=== PATIENT | male | born 1970 | race Caucasian/White ===

== ENCOUNTER 2017-12-10 15:57 | Emergency (ER) | payer OTHER ==
[~2017-12-10] VITALS: Ht 180.3 cm; Wt 104.3 kg
[~2017-12-10 15:57] MED LIST: ASPIR 8181 MG PO; CLONAZEPAM 1 MG1 M1 PO; HYDROCODON-ACE1 EAC7 PO; LISINOPRIL5 MG PO; LOVASTATIN 20 M20 MG PO; NOHOMEMEDICATIONS; ZOLOFT50 MG
[2017-12-10 17:02] LABS: ABSOLUTE BASOPHILS 0.1 thou/uL (0.0-0.2); ABSOLUTE EOSINOPHILS 0.3 thou/uL (0.0-0.7); ABSOLUTE MONOCYTES 0.3 thou/uL (0.0-1.2); ABSOLUTE NEUTROPHILS 3.7 thou/uL (1.6-8.1); BASOPHILS 1.4 %; EOSINOPHILS 4.9 %; HEMATOCRIT 47.5 % (42.0-52.0); HEMOGLOBIN 16.4 gm/dL (14.0-18.0); LYMPHOCYTES 31.5 %; MCH 30.1 pg (26.0-34.0); MCHC 34.5 g/dL (28.0-37.0); MCV 87.3 fL (80.0-100.0); MONOCYTES 4.7 %; MPV 8.3 fl. (7.2-11.1); NUCLEATED RBCS 0 /100WBC; PLATELET COUNT* 157 thou/uL (150-400); POLYS 57.5 %; RBC 5.44 mil/uL (4.50-6.00); RDW-CV 13.2 % (10.5-14.5); WBC 6.5 thou/uL (4.0-11.0)
[2017-12-10] MEDS ORDERED: PREDNISONE 20 M20 M1 PO (17:10)
[2017-12-10] MEDS ORDERED: DOXYCYCLINE 10100 M1 PO (17:10)
[2017-12-10] MEDS ORDERED: PROAIR HFA8.5 GM INH (17:10)
[2017-12-10 17:11] LABS: ANION GAP 3 mmol/L (7-16); BUN 18 mg/dL (7-18); CALCIUM 8.9 mg/dL (8.5-10.1); CHLORIDE 100 mmol/L (98-107); CO2 31 mmol/L (21-32); CREATININE 0.9 mg/dL (0.6-1.3); GLUCOSE 101 mg/dL (70-99); POTASSIUM 4.4 mmol/L (3.5-5.1); SODIUM 134 mmol/L (136-145)
[2017-12-10 17:22] LABS: ALBUMIN 3.7 g/dL (3.4-5.0); ALKALINE PHOSPHATASE 105 U/L (46-116); NT-PRO BRAIN NAT PEPTIDE 19 pg/mL (<300); SGOT 23 U/L (15-37); SGPT 35 U/L (30-65); TOTAL BILIRUBIN 0.6 mg/dL (<0.1-1.0); TOTAL PROTEIN 7.8 g/dL (6.4-8.2); TROPONIN-I LEVEL <0.06 ng/mL (<0.06)
[2017-12-10 18:14] LABS: INFLUENZA A ANTIGEN None Detected (None Detect); INFLUENZA B ANTIGEN None Detected (None Detect)
[2017-12-10 18:34] VITALS: BP 121/75
--- NOTE | 2017-12-11 15:51 | EKG ---
[place] [address] ELECTROCARDIOGRAM REPORT Name: AJAY VELA Room: [facility]#: [id number] Admission: 12/10/17 Attend Phys: Discharge: 12/10/17 Date of : 74 Report #: [id number] THIS REPORT FOR: //name// [facility] ED Test Date: 2017-12-10 Test Time: 16:17:13 Pat Name: AJAY BRUNERCK Department: Room: Gender: M Distribution Manager: EDELMIRA : 1970 Requested By: Mercy Charles Order Number: [id number] MD: Ajay Mensah Measurements Intervals [place] Rate: 83 P: 73 ID: 161 QRS: 45 QRSD: 101 T: 61 QT: 371 QTc: 436 Interpretive Statements Sinus rhythm RSR' in V1 or V2, right IVCD ST elev, probable normal early repol pattern Compared to ECG 05/12/2015 10:53:01 Heart rate has increased Electronically Signed On 12-11-2017 15:51:44 PIPING DRAFTER by Ajay Mensah [email or web address] <ELECTRONICALLY SIGNED> By: Ajay Mensah MD, [facility] 12/11/17 1551 1617 1617 Ajay Mensah MD, [facility] /EPI
== END 2017-12-10 18:36 | disposition home or self-care (01) ==
LOC: M.ERS 15:57
PROVIDERS: Nurse Practitioner Family
DX: J20.9 Acute bronchitis, unspecified (principal); J18.1 Lobar pneumonia, unspecified organism; F17.210 Nicotine dependence, cigarettes, uncomplicated; I10 Essential (primary) hypertension; E78.5 Hyperlipidemia, unspecified; E11.9 Type 2 diabetes mellitus without complications; F41.9 Anxiety disorder, unspecified

== ENCOUNTER → 2017-12-18 | Outpatient (CLI) | payer OTHER ==
[~2017-12-18] MED LIST changes: +DOXYCYCLINE 10100 M1 PO; +PREDNISONE 20 M20 M1 PO; +PROAIR HFA8.5 GM INH; +ZPAK PO
== END ==
LOC: M.RAD 16:32
DX: J18.9 Pneumonia, unspecified organism (principal)

== ENCOUNTER → 2018-01-18 | Outpatient (CLI) | payer OTHER ==
--- NOTE | 2018-01-18 12:59 | EXE ---
[place] [address] STRESS ECHOCARDIOGRAM Name: AJAY VELA Room: [facility]#: [id number] Admission: 01/18/18 Attend Phys: Prashanth Rosales MD Discharge: Date of : 74 Date of Service: 01/18/18 1258 Report #: [id number] THIS REPORT FOR: //name// APPROVED REPORT Exam: Stress Echocardiogram Indication: Chest pain Patient Location: Out-Patient Stress Nurse: Sheridan Rosario RN Supervising Physician: Sy Griggs MD Status: routine Ht: 5 ft 11 in HR: 87 bpm BP: 127/75 mmHg Rhythm: NSR Medical History Cardiac Risk Factors: HTN, Hyperlipidemia, DM, Tobacco History (Current/Recent) Procedure The patient underwent an Exercise Stress Test using the Rubén Protocol. Blood pressure, heart rate, and EKG were monitored. An Echocardiogram was performed by soldering technician in four stages in quad fashion. At peak stress, four selected images were obtained and placed side by side with resting images for comparison. Echo Enhancing Agent Indication: Endocardial border delineation Agent(s) / Amount(s) Used: Optison 8 cc Stress Test Details Stress Test: Exercise stress testing was performed using a Rubén protocol. HR Resting HR: 87 bpm Max Heart Rate (APMHR): 174 bpm Max HR Achieved: 160 bpm Target HR (85% APMHR): 147 bpm % of APMHR: 91 Recovery HR: 90 bpm HR response to stress: Normal HR response to stress BP Resting BP: 127/75 mmHg Max BP: 140/80 mmHg Recovery BP: 139/89 [place] [address] STRESS ECHOCARDIOGRAM Name: AJAY VELA Room: [facility]#: [id number] Admission: 01/18/18 Attend Phys: Prashanth Rosales MD Discharge: Date of : 74 Date of Service: 01/18/18 1258 Report #: [id number] ECG Resting ECG: Sinus Rhythm Stress ECG: Sinus Tachycardia Maximum ST Deviation: 0 mm Recovery ECG: Sinus Rhythm Recovery ST Deviation: 0 mm Clinical Reason for Termination: Dyspnea Exercise duration: 8 min 45 sec Highest Stage Achieved: Stage 3: 3.4 mph at 14% grade. Exercise capacity: 10.16 METs patient noted mild chest aching at peak exercise Pre-Stress Echo The resting Echocardiogram showed normal left ventricular contractility with an estimated Ejection Fraction of about 55-60%. Post-Stress Echo The stress Echocardiogram showed normal left ventricular contractility with an estimated Ejection Fraction of about 65-70%. Conclusion Clinical Response: Equivocal Exercise Capacity: Average Stress ECG Response: Non-ischemic Stress Echo Images: Non-ischemic low risk stress echo for future cardiac events Other Information Study Quality: Fair Technically limited study due to poor endocardial definition. <Conclusion> low risk stress echo for future cardiac events <ELECTRONICALLY SIGNED> By: Prashanth Rosales MD, FACC 01/18/18 1258 1258 1258 Prashanth Rosales MD, FACC /INF
== END ==
LOC: M.CRD 10:28
DX: R07.82 Intercostal pain (principal); I10 Essential (primary) hypertension; E11.9 Type 2 diabetes mellitus without complications; E78.5 Hyperlipidemia, unspecified; Z87.891 Personal history of nicotine dependence

== ENCOUNTER 2018-03-23 16:58 | Emergency (ER) | payer OTHER ==
[~2018-03-23] VITALS: Ht 154.9 cm; Wt 111.1 kg
[~2018-03-23 16:58] MED LIST changes: -ZPAK PO
[2018-03-23 17:50] LABS: ABSOLUTE EOSINOPHILS 0.3 thou/uL (0.0-0.7); ABSOLUTE LYMPHOCYTES 1.8 thou/uL (0.8-5.3); ABSOLUTE MONOCYTES 0.3 thou/uL (0.0-1.2); ABSOLUTE NEUTROPHILS 3.2 thou/uL (1.6-8.1); BASOPHILS 0.5 %; EOSINOPHILS 4.7 %; HEMATOCRIT 44.7 % (42.0-52.0); HEMOGLOBIN 15.2 gm/dL (14.0-18.0); LYMPHOCYTES 32.3 %; MCH 30.2 pg (26.0-34.0); MCHC 33.9 g/dL (28.0-37.0); MCV 89.1 fL (80.0-100.0); MONOCYTES 5.3 %; MPV 8.8 fl. (7.2-11.1); NUCLEATED RBCS 0 /100WBC; PLATELET COUNT* 148 thou/uL (150-400); POLYS 57.2 %; RBC 5.02 mil/uL (4.50-6.00); RDW-CV 12.9 % (10.5-14.5); WBC 5.6 thou/uL (4.0-11.0)
[2018-03-23 17:56] LABS: ANION GAP 8 mmol/L (7-16); BUN 15 mg/dL (7-18); CALCIUM 9.2 mg/dL (8.5-10.1); CHLORIDE 100 mmol/L (98-107); CO2 31 mmol/L (21-32); CREATININE 0.8 mg/dL (0.6-1.3); GLUCOSE 104 mg/dL (70-99); POTASSIUM 4.1 mmol/L (3.5-5.1); SODIUM 139 mmol/L (136-145)
[2018-03-23 18:07] LABS: ALBUMIN 3.6 g/dL (3.4-5.0); ALKALINE PHOSPHATASE 80 U/L (46-116); LIPASE 123 U/L (73-393); NT-PRO BRAIN NAT PEPTIDE 33 pg/mL (<300); SGOT 26 U/L (15-37); SGPT 42 U/L (30-65); TOTAL BILIRUBIN 0.5 mg/dL (<0.1-1.0); TOTAL PROTEIN 7.2 g/dL (6.4-8.2); TROPONIN-I LEVEL <0.06 ng/mL (<0.06)
[2018-03-23 18:08] LABS: APTT 28.4 Seconds (25.0-31.3); INR 1.1; PROTIME 10.7 Seconds (9.20-11.50)
[2018-03-23] MEDS ORDERED: ZPAK PO (18:50)
[2018-03-23 19:43] VITALS: BP 135/75
--- NOTE | 2018-03-25 15:47 | EKG ---
[place] [address] ELECTROCARDIOGRAM REPORT Name: AJAY VELA Room: [facility]#: [id number] Admission: 03/23/18 Attend Phys: Discharge: 03/23/18 Date of : 74 Report #: [id number] THIS REPORT FOR: //name// [facility] ED Test Date: 2018-03-23 Test Time: 17:01:31 Pat Name: AJAY VELA Department: Room: Gender: M Gold Beater: MS : 1970 Requested By: Zandra Farias Order Number: [id number] MD: Anton Romo Measurements Intervals [place] Rate: 60 P: 46 [place]: 181 QRS: 43 QRSD: 115 T: 59 QT: 407 QTc: 407 Interpretive Statements Sinus rhythm with sinus arrhythmia Possible left atrial enlargement Incomplete right bundle-branch block Compared to ECG 12/10/2017 16:17:13 No significant changes Electronically Signed On 03-25-2018 15:47:27 CDT by Anton Romo [email or web address] <ELECTRONICALLY SIGNED> By: Anton Romo MD, [facility] 03/25/18 1547 170 00 Anton oRmo MD, FAC /EPI
== END 2018-03-23 19:43 | disposition home or self-care (01) ==
LOC: M.ERS 16:58
PROVIDERS: Personal Emergency Response Attendant
DX: J18.9 Pneumonia, unspecified organism (principal); I10 Essential (primary) hypertension; F41.9 Anxiety disorder, unspecified; E11.9 Type 2 diabetes mellitus without complications; E78.5 Hyperlipidemia, unspecified; F32.9 Major depressive disorder, single episode, unspecified; F17.210 Nicotine dependence, cigarettes, uncomplicated

== ENCOUNTER → 2018-04-03 | Outpatient (CLI) | payer OTHER ==
[~2018-04-03] MED LIST changes: +ZPAK PO
== END ==
LOC: M.CT 10:35
DX: J69.0 Pneumonitis due to inhalation of food and vomit (principal); R06.02 Shortness of breath

== ENCOUNTER → 2018-04-25 | Outpatient (CLI) | payer OTHER ==
--- NOTE | 2018-04-27 07:24 | PF ---
[address] [address] PULMONARY FUNCTION REPORT Name: AJAY VELA Room: [facility]#: [id number] Admission: 04/25/18 Attend Phys: Prashanth Boggs MD Discharge: Date of : 74 Report #: [id number] THIS REPORT FOR: //name// CC: Prashanth Boggs REFERRING PHYSICIAN: Prashanth Boggs MD TYPE OF STUDY: Pulmonary function test. SPIROMETRY: FEV1/FVC was 61% predicted. FEV1 was 2.65 liters at 57% predicted. Total lung capacity was 6.12 liters at 84% predicted. DLCO was 53% predicted. IMPRESSION: The above study suggests obstructive pulmonary defect; however, the patient's performance was suboptimal and the study did not meet the ATS criteria. <ELECTRONICALLY SIGNED> By: Chris Taylor MD 04/27/18 0724 0910 2058Chris Taylor MD /nt
== END ==
LOC: M.PUL 12:43
DX: I10 Essential (primary) hypertension (principal); R06.02 Shortness of breath

== ENCOUNTER → 2018-05-23 | Outpatient (CLI) | payer OTHER | LOC: M.CT 10:41 | DX: N28.9 Disorder of kidney and ureter, unspecified (principal); J18.9 Pneumonia, unspecified organism; M41.86 Other forms of scoliosis, lumbar region; R25.1 Tremor, unspecified; I10 Essential (primary) hypertension; E11.9 Type 2 diabetes mellitus without complications; E78.5 Hyperlipidemia, unspecified; Z87.891 Personal history of nicotine dependence ==

== ENCOUNTER 2018-11-10 20:54 | Emergency (ER) | payer OTHER ==
[~2018-11-10] VITALS: Ht 180.3 cm; Wt 111.1 kg
[2018-11-10] MEDS ORDERED: OSELB75 (21:04)
[2018-11-10] MEDS ORDERED: LISINOPRIL10 MG (21:05)
[2018-11-10] MEDS ORDERED: METFORMIN HCL500 MG (21:05)
[2018-11-10] MEDS ORDERED: VITAMIN D1000 UNI1 (21:06)
[2018-11-10 22:08] LABS: INFLUENZA A ANTIGEN None Detected (None Detect); INFLUENZA B ANTIGEN None Detected (None Detect)
[2018-11-10] MEDS ORDERED: PREDNISONE 20 M20 MG PO (22:13)
[2018-11-10] MEDS ORDERED: ACETAMINOPHEN-1 EAC1 PO (22:13)
[2018-11-10] MEDS ORDERED: PROMETHAZINE V120 ML PO (22:13)
[2018-11-10] MEDS ORDERED: ZPAK PO (22:13)
[2018-11-10] MEDS ORDERED: PROAIR HFA8.5 GM INH (22:13)
[2018-11-10 22:42] VITALS: BP 125/80
--- NOTE | 2018-11-11 13:49 | EKG ---
[place] [address] ELECTROCARDIOGRAM REPORT Name: AJAY VELA Room: [facility]#: [id number] Admission: 11/10/18 Attend Phys: Discharge: 11/10/18 Date of : 74 Report #: [id number] THIS REPORT FOR: //name// [facility] ED Test Date: 2018-11-10 Test Time: 21:18:19 Pat Name: AJAY VELA Department: Room: Gender: M Box Estimator: Jazmin HARTLEY : 1970 Requested By: Zandra Bingham Order Number: [id number] MD: Sy Griggs Measurements Intervals [place] Rate: 79 P: 49 [place]: 190 QRS: 6 QRSD: 102 T: 51 QT: 361 QTc: 414 Interpretive Statements Sinus rhythm Probable left atrial enlargement RSR' in V1 or V2, right VCD or RVH ST elev, probable normal early repol pattern Compared to ECG 03/23/2018 17:01:31 Right ventricular hypertrophy now present RSR' in V1 or V2 now present ST (T wave) deviation now present Sinus arrhythmia no longer present Electronically Signed On 11-11-2018 13:49:28 ROUGH PATCHER by Sy Griggs [email or web address] <ELECTRONICALLY SIGNED> By: Sy Griggs MD, [facility] 11/11/18 1349 17 17 Sy Griggs MD, FAC /EPI
== END 2018-11-10 22:42 | disposition home or self-care (01) ==
LOC: M.ERS 20:54
PROVIDERS: Physician Assistant
DX: J18.9 Pneumonia, unspecified organism (principal); I10 Essential (primary) hypertension; E78.5 Hyperlipidemia, unspecified; E11.9 Type 2 diabetes mellitus without complications; F41.9 Anxiety disorder, unspecified; F17.210 Nicotine dependence, cigarettes, uncomplicated

== ENCOUNTER → 2019-01-28 | Outpatient (CLI) | payer OTHER ==
[~2019-01-28] MED LIST changes: +ACETAMINOPHEN-1 EAC1 PO; +LISINOPRIL10 MG; +METFORMIN HCL500 MG; +OSELB75; +PREDNISONE 20 M20 MG PO; +PROMETHAZINE V120 ML PO; +VITAMIN D1000 UNI1
== END ==
LOC: M.ULTRA 10:23
DX: I10 Essential (primary) hypertension (principal); N28.1 Cyst of kidney, acquired; R25.1 Tremor, unspecified

== ENCOUNTER → 2019-01-31 | Outpatient (CLI) | payer OTHER | LOC: M.MRI 01-30 16:30 | DX: I10 Essential (primary) hypertension (principal); R25.1 Tremor, unspecified; Z53.29 Procedure and treatment not carried out because of patient's decision for other reasons ==

== ENCOUNTER → 2019-02-08 | Outpatient (CLI) | payer OTHER | LOC: M.MRI 07:06 | DX: R25.1 Tremor, unspecified (principal); J34.1 Cyst and mucocele of nose and nasal sinus; I10 Essential (primary) hypertension ==

== ENCOUNTER 2019-04-21 20:28 | Emergency (ER) | payer OTHER ==
[~2019-04-21] VITALS: Ht 180.3 cm; Wt 111.1 kg
[2019-04-21] MEDS ORDERED: AMLODIPINE BESYL5 M1 PO (20:36)
[2019-04-21 20:46] LABS: ABSOLUTE EOSINOPHILS 0.1 thou/uL (0.0-0.7); ABSOLUTE LYMPHOCYTES 0.7 thou/uL (0.8-5.3); ABSOLUTE MONOCYTES 0.5 thou/uL (0.0-1.2); ABSOLUTE NEUTROPHILS 3.4 thou/uL (1.6-8.1); BASOPHILS 0.9 %; EOSINOPHILS 2.5 %; HEMATOCRIT 45.7 % (42.0-52.0); HEMOGLOBIN 15.7 gm/dL (14.0-18.0); LYMPHOCYTES 15.6 %; MCH 30.2 pg (26.0-34.0); MCHC 34.4 g/dL (28.0-37.0); MCV 87.8 fL (80.0-100.0); MONOCYTES 9.4 %; MPV 8.5 fl. (7.2-11.1); NUCLEATED RBCS 0 /100WBC; PLATELET COUNT* 146 thou/uL (150-400); POLYS 71.6 %; RDW-CV 12.4 % (10.5-14.5); WBC 4.8 thou/uL (4.0-11.0)
[2019-04-21 21:11] LABS: CALCIUM 8.7 mg/dL (8.5-10.1); POTASSIUM 3.5 mmol/L (3.5-5.1)
[2019-04-21 21:16] LABS: ALBUMIN 3.7 g/dL (3.4-5.0); TOTAL BILIRUBIN 0.7 mg/dL (<0.1-1.0); TOTAL PROTEIN 7.5 g/dL (6.4-8.2)
[2019-04-21] MEDS ORDERED: PREDNISONE50 MG PO (21:54)
[2019-04-21 22:10] VITALS: BP 121/62
--- NOTE | 2019-04-22 15:06 | EKG ---
[place] [address] ELECTROCARDIOGRAM REPORT Name: AJAY VELA [facility]#: [id number] Admission: 04/21/19 Attend Phys: Discharge: 04/21/19 Date of : 74 Report #: [id number] THIS REPORT FOR: //name// [facility] ED Test Date: 2019-04-21 Test Time: 20:33:29 Pat Name: AJAY FIGUEROADOCK Department: Room: Gender: M Records Clerk: MARIIA : 1970 Requested By: Verito Franklin Order Number: [id number] Reading MD: Ajay Mensah Measurements Intervals [place] Rate: 91 P: 52 [place]: 160 QRS: -2 QRSD: 105 T: 47 QT: 346 QTc: 426 Interpretive Statements Sinus rhythm Probable left atrial enlargement RSR' in V1 or V2, right VCD or RVH Compared to ECG 11/10/2018 21:18:19 ST (T wave) deviation no longer present Electronically Signed On 04-22-2019 15:05:43 CDT by Ajay Mensah [email or web address] <ELECTRONICALLY SIGNED> By: jAay Mensah MD, [facility] 04/22/19 1505 32 32 Ajay Mensah MD, [facility] /EPI
== END 2019-04-21 22:13 | disposition home or self-care (01) ==
LOC: M.ERS 20:28
PROVIDERS: Emergency Medicine
DX: J40 Bronchitis, not specified as acute or chronic (principal); I10 Essential (primary) hypertension; E78.5 Hyperlipidemia, unspecified; E11.9 Type 2 diabetes mellitus without complications; F41.9 Anxiety disorder, unspecified; F32.9 Major depressive disorder, single episode, unspecified; F17.210 Nicotine dependence, cigarettes, uncomplicated; Z87.01 Personal history of pneumonia (recurrent)

== ENCOUNTER 2019-11-07 14:09 | Emergency (ER) | payer OTHER ==
[~2019-11-07] VITALS: Ht 180.3 cm; Wt 109.8 kg
[~2019-11-07 14:09] MED LIST changes: +AMLODIPINE BESYL5 M1 PO; +PREDNISONE50 MG PO
[2019-11-07] MEDS ORDERED: CLONAZEPAM 0.50.5 M1 PO (14:31)
[2019-11-07 14:59] LABS: ABSOLUTE EOSINOPHILS 0.4 thou/uL (0.0-0.7); ABSOLUTE LYMPHOCYTES 1.6 thou/uL (0.8-5.3); ABSOLUTE MONOCYTES 0.3 thou/uL (0.0-1.2); ABSOLUTE NEUTROPHILS 3.4 thou/uL (1.6-8.1); BASOPHILS 0.8 %; EOSINOPHILS 6.5 %; HEMATOCRIT 44.6 % (42.0-52.0); HEMOGLOBIN 15.6 gm/dL (14.0-18.0); LYMPHOCYTES 27.6 %; MCH 30.6 pg (26.0-34.0); MCV 87.4 fL (80.0-100.0); MONOCYTES 5.2 %; NUCLEATED RBCS 0 /100WBC; PLATELET COUNT* 175 thou/uL (150-400); POLYS 59.9 %; RDW-CV 13.3 % (10.5-14.5); WBC 5.6 thou/uL (4.0-11.0)
[2019-11-07 15:03] LABS: CALCIUM 8.3 mg/dL (8.5-10.1); CREATININE 0.9 mg/dL (0.6-1.3); POTASSIUM 4.4 mmol/L (3.5-5.1)
[2019-11-07 15:07] LABS: ALBUMIN 3.5 g/dL (3.4-5.0); TOTAL BILIRUBIN 0.5 mg/dL (<0.1-1.0); TOTAL PROTEIN 7.4 g/dL (6.4-8.2)
[2019-11-07 15:13] LABS: URINE BILIRUBIN NEGATIVE (Negative); URINE BLOOD NEGATIVE (Negative); URINE CLARITY CLEAR; URINE COLOR YELLOW; URINE GLUCOSE-RANDOM NEGATIVE (Negative); URINE KETONES NEGATIVE (Negative); URINE LEUKOCYTES-REFLEX NEGATIVE (Negative); URINE NITRITE-REFLEX NEGATIVE (Negative); URINE PROTEIN NEGATIVE (Negative); URINE SPECIFIC GRAVITY 1.025 (1.005-1.030); URINE UROBILINOGEN 0.2 E.U./dl (0.2-1.0)
[2019-11-07] MEDS ORDERED: CEFDINIR300 MG PO (17:50)
[2019-11-07 18:00] VITALS: BP 123/75
== END 2019-11-07 18:02 | disposition home or self-care (01) ==
LOC: M.ERS 14:09
PROVIDERS: Nurse Practitioner Family
DX: J20.9 Acute bronchitis, unspecified (principal); R11.2 Nausea with vomiting, unspecified; I10 Essential (primary) hypertension; E78.5 Hyperlipidemia, unspecified; E11.9 Type 2 diabetes mellitus without complications; F17.210 Nicotine dependence, cigarettes, uncomplicated; Z87.01 Personal history of pneumonia (recurrent)

== ENCOUNTER 2021-02-27 13:34 | Emergency (ER) | payer OTHER ==
[~2021-02-27] VITALS: Ht 180.3 cm; Wt 112.0 kg
[~2021-02-27 13:34] MED LIST changes: -AMLODIPINE BESYL5 M1 PO; +CEFDINIR300 MG PO; +CLONAZEPAM 0.50.5 M1 PO; -LISINOPRIL10 MG; +LISINOPRIL10 MG PO; +NORVASC10 MG PO
[2021-02-27 13:49] LABS: ABSOLUTE BASOPHILS 0.1 thou/uL (0.0-0.2); ABSOLUTE EOSINOPHILS 0.2 thou/uL (0.0-0.7); ABSOLUTE LYMPHOCYTES 1.7 thou/uL (0.8-5.3); ABSOLUTE MONOCYTES 0.3 thou/uL (0.0-1.2); ABSOLUTE NEUTROPHILS 2.9 thou/uL (1.6-8.1); BASOPHILS 1.1 %; EOSINOPHILS 3.4 %; HEMATOCRIT 43.4 % (42.0-52.0); HEMOGLOBIN 14.9 gm/dL (14.0-18.0); LYMPHOCYTES 33.8 %; MCH 29.3 pg (26.0-34.0); MCHC 34.4 g/dL (28.0-37.0); MONOCYTES 5.2 %; MPV 8.4 fl. (7.2-11.1); NUCLEATED RBCS 0 /100WBC; PLATELET COUNT* 165 thou/uL (150-400); POLYS 56.5 %; RDW-CV 12.4 % (10.5-14.5); WBC 5.2 thou/uL (4.0-11.0)
[2021-02-27] MEDS ORDERED: VENTOLIN HFA 1818 GM INH (13:53)
[2021-02-27 14:02] LABS: CALCIUM 9.6 mg/dL (8.5-10.1)
[2021-02-27 14:10] LABS: ALBUMIN 3.8 g/dL (3.4-5.0); APTT 23.6 Seconds (25.0-31.3); CK-MB MASS 1.6 ng/mL (<0.5-3.6); MAGNESIUM 1.9 mg/dL (1.8-2.4); PROTIME 10.3 Seconds (9.20-11.50); TOTAL BILIRUBIN 0.5 mg/dL (<0.1-1.0); TOTAL PROTEIN 7.7 g/dL (6.4-8.2)
[2021-02-27 15:00] VITALS: BP 138/84
--- NOTE | 2021-03-01 09:46 | EKG ---
[place] [address] ELECTROCARDIOGRAM REPORT Name: AJAY VELA Room: [facility]#: [id number] Admission: 02/27/21 Attend Phys: Discharge: 02/27/21 Date of : 74 Date of Service: 02/27/21 1336 Report #: [id number] THIS REPORT FOR: //name// [facility] ED Test Date: 2021-02-27 Test Time: 13:36:45 Pat Name: AJAY VELA Department: Room: Gender: Exit Booth Agent: KAREEM : 1970 Requested By: Vishal Silva Order Number: [id number] MD: Prashanth Rosales Measurements Intervals [place] Rate: 92 P: 57 RI: 160 QRS: 4 QRSD: 86 T: 43 QT: 356 QTc: 441 Interpretive Statements Sinus rhythm Probable left atrial enlargement RSR' in V1 or V2, right VCD or RVH Compared to ECG 04/21/2019 20:33:29 No significant changes Electronically Signed On 03-01-2021 9:46:20 CDT by Prashanth Rosales [email or web address] <ELECTRONICALLY SIGNED> By: Prashanth Rosales MD, [facility] 03/01/21 0946 1336 1336 Prashanth Rosales MD, [facility] /EPI
== END 2021-02-27 15:01 | disposition home or self-care (01) ==
LOC: M.ERS 13:34
PROVIDERS: Family Medicine
DX: R53.1 Weakness (principal); I10 Essential (primary) hypertension; E78.5 Hyperlipidemia, unspecified; E11.9 Type 2 diabetes mellitus without complications; F17.210 Nicotine dependence, cigarettes, uncomplicated; Z87.01 Personal history of pneumonia (recurrent)

== ENCOUNTER → 2021-03-09 | Outpatient (CLI) | payer OTHER ==
[~2021-03-09] MED LIST changes: +VENTOLIN HFA 1818 GM INH
== END ==
LOC: M.CT 12:46
PROVIDERS: ATTEND Registered Nurse Diabetes Educator
DX: J34.1 Cyst and mucocele of nose and nasal sinus (principal); J98.01 Acute bronchospasm; R93.89 Abnormal findings on diagnostic imaging of other specified body structures; J43.9 Emphysema, unspecified; K76.89 Other specified diseases of liver; K76.0 Fatty (change of) liver, not elsewhere classified

== ENCOUNTER → 2021-03-16 | Outpatient (CLI) | payer OTHER ==
--- NOTE | 2021-03-22 08:18 | PF ---
[address] [address] PULMONARY FUNCTION REPORT Name: AJAY VELA Breanna Room: [facility]#: [id number] Admission: 03/16/21 Attend Phys: Earl Huddleston MD Discharge: Date of : 74 Report #: [id number] THIS REPORT FOR: cc: Ellen Babin Tammy RNP Pervez, Adeel MD ~ DOC #: [id number] Earl Huddleston MD DATE OF VISIT: 03/16/2021 PULMONARY FUNCTION TEST The patient was unable to perform pulmonary function test according to ATS criteria and therefore the results are not consistent and do not meet ATS standards. With this limitation, the estimated results are as below. The FEV1/FVC ratio is decreased to 58% with an FVC decreased to 62% and the FEV1 is decreased to 46%. The FEF 25-75 is decreased to 33%. After the administration of bronchodilators, there is no significant increase in any of these values. The patient's FEV1 is 1.88 liters. This does not increase after the administration of albuterol. Total lung capacity is decreased to 53% with a residual volume markedly decreased to 30%. The DLCO as adjusted for hemoglobin is decreased to 48%. IMPRESSION: 1. There is obstruction present, this is likely moderate. This is likely not with reversibility. 2. There is marked restriction with a total lung capacity decreased to only 53%. 3. The DLCO adjusted for hemoglobin is moderately decreased to 48%. 4. There is high variability in the patient's effort and ability to perform this test and therefore the results were not consistent with the ATS criteria. MD MONTRELL Stephenson/RIVER/ARLYN <ELECTRONICALLY SIGNED> By: Earl Huddleston MD 03/22/21 0818 2108 0233Areny Huddleston MD /nt
== END ==
LOC: M.PUL 13:22
PROVIDERS: ATTEND Internal Medicine Critical Care Medicine
DX: J44.9 Chronic obstructive pulmonary disease, unspecified (principal)

== ENCOUNTER → 2021-03-26 | Outpatient (CLI) | payer OTHER | LOC: M.SLEEPLAB 03-18 20:00 | PROVIDERS: ATTEND Internal Medicine Critical Care Medicine | DX: G47.33 Obstructive sleep apnea (adult) (pediatric) (principal) ==

== ENCOUNTER → 2021-04-21 | Outpatient (CLI) | payer OTHER ==
--- NOTE | 2021-04-21 13:30 | 2DMMODE ---
[place] [address] 2 D/M-MODE ECHOCARDIOGRAM Name: AJAY VELA Room: [facility]#: [id number] Admission: 04/21/21 Attend Phys: Earl Huddleston MD Discharge: Date of : 74 Date of Service: 04/21/21 1330 Report #: [id number] THIS REPORT FOR: cc: Ellen Babin Tammy RNP Holkins, John M. MD [facility] ~ APPROVED REPORT Study performed: 04/21/2021 12:26:31 EXAM: Comprehensive 2D, Doppler, and color-flow Echocardiogram Patient Location: Out-Patient BSA: 2.30 HR: 66 bpm BP: 100/60 mmHg Other Information Study Quality: Fair Technically limited study due to lung disease. Indications Dyspnea 2D Dimensions IVSd: 10.51 (7-11mm) LVOT Diam: 19.59 (18-24mm) LVDd: 42.83 mm PWd: 9.57 (7-11mm) Ascending Ao: 26.69 (22-36mm) LVDs: 27.62 (25-40mm) Aortic Root: 28.14 mm Volumes Left Atrial Volume (Systole) LA ESV Index: 9.70 mL/m2 Aortic Valve AoV Peak Ousmane.: 1.02 m/s AO Peak Gr.: 4.13 mmHg LVOT Max P.40 mmHg AO Mean Gr.: 2.60 mmHg LVOT Mean P.30 mmHg LVOT Max V: 0.77 m/s AO V2 VTI: 16.64 cm LVOT Mean V: 0.54 m/s ALFA (VTI): 2.66 cm2 LVOT V1 VTI: 14.70 [place] [address] 2 D/M-MODE ECHOCARDIOGRAM Name: AJAY VELA Room: [facility]#: [id number] Admission: 04/21/21 Attend Phys: Earl Huddleston MD Discharge: Date of : 74 Date of Service: 04/21/21 1330 Report #: [id number] E/A Ratio: 0.90 MV Decel. Time: 256.92 ms MV E Max Ousmane.: 0.52 m/s MV PHT: 74.51 ms MVA (PHT): 2.95 cm2 TDI E/Lateral E': 5.20 E/Medial E': 7.43 Medial E' Ousmane.: 0.07 m/s Lateral E' Ousmane.: 0.10 m/s Pulmonary Valve PV Peak Ousmane.: 1.36 m/s PV Peak Gr.: 7.42 mmHg Tricuspid Valve RAP Estimate: 5.00 mmHg TR Peak Gr.: 11.38 mmHg RVSP: 16.38 mmHg PA Pressure: 16.38 mmHg Left Ventricle The left ventricle is normal size. There is normal LV segmental wall motion. There is normal left ventricular wall thickness. Left ventricular systolic function is normal. The left ventricular ejection fraction is within the normal range. LVEF is 55-60%. Grade I - abnormal relaxation pattern. Right Ventricle The right ventricle is normal size. The right ventricular systolic function is normal. Atria The left atrium size is normal. The right atrium size is normal. Aortic Valve The aortic valve is normal in structure. No aortic regurgitation is present. There is no aortic valvular stenosis. Mitral Valve The mitral valve is normal in structure. There is no mitral valve regurgitation noted. No evidence of mitral valve stenosis. Tricuspid Valve The tricuspid valve is normal in structure. Trace tricus[place] [address] 2 D/M-MODE ECHOCARDIOGRAM Name: AJAY VELA Room: [facility]#: [id number] Admission: 04/21/21 Attend Phys: Earl Huddleston MD Discharge: Date of : 74 Date of Service: 04/21/21 1330 Report #: [id number] Pulmonic Valve The pulmonary valve is normal in structure. There is no pulmonic valvular regurgitation. Great Vessels The aortic root is normal in size. IVC is not visualized. Pericardium There is no pericardial effusion. <Conclusion> The left ventricle is normal size. There is normal left ventricular wall thickness. Left ventricular systolic function is normal. The left ventricular ejection fraction is within the normal range. LVEF is 55-60%. Grade I - abnormal relaxation pattern. The right ventricle is normal size. The left atrium size is normal. The aortic valve is normal in structure. The mitral valve is normal in structure. The tricuspid valve is normal in structure. There is no pericardial effusion. There is normal LV segmental wall motion. <ELECTRONICALLY SIGNED> By: Ajay Mensah MD, [facility] 04/21/21 133 1330 29 Ajay Mensah MD, FACC /INF
== END | disposition home or self-care (01) ==
LOC: M.CRD 12:39
PROVIDERS: ATTEND Internal Medicine Critical Care Medicine
DX: R06.02 Shortness of breath (principal)

== ENCOUNTER → 2021-08-25 | Outpatient (CLI) | payer OTHER | LOC: M.RAD 11:03 | PROVIDERS: ATTEND Registered Nurse Diabetes Educator | DX: I10 Essential (primary) hypertension (principal); R05.9 Cough, unspecified; R06.2 Wheezing ==

== ENCOUNTER → 2021-08-27 | Outpatient (CLI) | payer OTHER | LOC: M.LAB 09:37 | PROVIDERS: ATTEND Internal Medicine Critical Care Medicine | DX: R06.02 Shortness of breath (principal) ==